=== PATIENT | male | born 1985 | race Caucasian/White ===

== ENCOUNTER 2019-09-17 05:41 | Emergency (ER) | payer SELFPAY ==
[2019-09-17] VITALS (17 sets, daily range): BP systolic 91–157; BP diastolic 42–80; PULSE 111–140; RESP 17–25; TEMP 37.7; O2SAT 95–99; BMI 54.2
--- NOTE | 2019-09-17 06:13 | ED_ITS ---
HPI - SOB/Dyspnea General: Chief Complaint: Shortness of Breath/Dyspnea Stated Complaint: SOB/FEVER Time Seen by Provider: 09/17/19 06:13 History of Present Illness: HPI Narrative: 33-year-old male presents with complaints of shortness of breath. He is tachycardic with a low-grade fever. States this began overnight he went to bed feeling well. He woke up with sweats and chills. He has had some vomiting he denies any hematochezia melena hematemesis or coffee-ground emesis. He is a little bit short of breath and is also complaining of very mild chest discomfort. He has a history of sleep apnea but does not use any CPAP. MD elicited complaint: shortness of breath and cough Onset (ago): hour(s) (Overnight) Timing: constant Severity: moderate Exacerbating factors: nothing Relieving factors: nothing Known history of: other (Sleep apnea) Associated symptoms: Reports chest congestion, chest pain and fever(s); Deny abdominal pain, nausea, orthopnea or vomiting Treatment prior to arrival: none Review of Systems Const: Reports: fever, chills and body aches; Denies: change in appetite, fatigue or malaise ENMT: Denies: throat pain, ear pain, nasal discharge or nasal congestion Card: Reports: chest pain and shortness of breath on exertion; Denies: edema or shortness of breath when lying down Resp: Reports: chest congestion GI: Denies: abdominal pain, nausea, vomiting, vomiting blood, coffee grounds in vomit, diarrhea, constipation, bloating, blood in stool or black tarry stool : Denies: flank pain, painful urination, urinary frequency or urinary urgency Skin/Breast: Denies: rash or itching PFS ED PFSH: Medical History (Updated 09/17/19 @ 08:20 by August Mcginnis DO) Sleep apnea Social History Smoking and tobacco status: former smoker Physical Exam Const: COMMON NORMALS: no apparent distress GENERAL APPEARANCE: cooperative and comfortable ORIENTATION/CONSCIOUSNESS: Yes awake, Yes oriented to person, Yes oriented to place and Yes oriented to time HENMT: COMMON NORMALS: normocephalic, head/scalp atraumatic, hearing grossly normal bilaterally, external ears normal, EAC's normal, TM's normal bilaterally, nasal mucous membranes and turbinates normal, moist oral mucous membranes and oropharynx normal HEAD & SCALP: normocephalic and atraumatic NOSE: nasal mucous membranes and turbinates normal EXTERNAL EAR: Yes external ears normal EXTERNAL AUDITORY CANAL: EAC's normal TYMPANIC MEMBRANE: TM's normal bilaterally Eye: COMMON NORMALS: PERRL, EOMs intact bilaterally, conjunctivae normal and no scleral icterus CONJUNCTIVA: Yes conjunctivae normal PUPIL: Yes PERRL Neck/C-Spine: COMMON NORMALS: full ROM, no lymphadenopathy, supple and no JVD Lymph: LYMPHATIC: no lymphadenopathy noted and no lymphedema noted Resp: COMMON NORMALS: normal respiratory effort, no retractions and no use of accessory muscles AUSCULTATION: rhonchi (mil) lower bilaterally (mild) and wheezes Cardio: COMMON NORMALS: no JVD, regular rate, regular rhythm and no murmurs RATE: regular rate RHYTHM: regular rhythm GI: COMMON NORMALS: soft to palpation and no hepatosplenomegaly AUSCULTATION: Yes normoactive bowel sounds PALPATION: Yes soft, No tender, No guarding and Yes no hepatosplenomegaly : OTHER: Patient urinated on his clothing. Extremity: COMMON NORMALS: normal to inspection, normal capillary refill, no clubbing, cyanosis or edema, no calf tenderness and no pedal edema Neuro: SENSORIUM/ORIENTATION: Yes oriented to person, Yes oriented to place and Yes oriented to time Skin: COMMON NORMALS: no rashes or lesions noted GENERAL SKIN EXAM: no rashes or lesions noted Course ED course: Patient feeling better after fluids his blood pressure did drop for whether some mechanical issues clicking data the blood pressure cuff is on the forearm and slipping off. He was up and ambulatory without any difficulty and his blood pressure was demonstrated to be in the 1 teens we will go ahead and discharge him home follow-up as needed Vital Signs: Vital signs: Vital Signs Temperature 100 F H 09/17/19 05:50 Pulse Rate 113 H 09/17/19 10:48 Respiratory Rate 18 09/17/19 10:47 Blood Pressure 102/65 09/17/19 10:48 Pulse Oximetry 97 09/17/19 10:47 MDM - SOB/Dyspnea Lab Data: Labs: Lab Results 09/17/19 09/17/19 09/17/19 Range/Units 06:07 06:26 06:34 WBC 11.7 H (4.0-10.0) 10^3/ uL RBC 5.16 (4.1-5.3) 10^6/u L Hgb 12.7 (11.7-16.6) g/dL Hct 41.4 L (42.0-52.0) % MCV 80.2 (80-94) fL MCH 24.6 L (28.0-34.0) pg MCHC 30.7 (30.0-36.0) g/dL RDW 14.2 (12.1-15.1) % Plt Count 184 (130-400) 10^3/c mm MPV 9.6 (7.4-10.4) fL Neut % (Auto) 90.7 % Lymph % (Auto) 5.0 % Chase % (Auto) 3.5 % Eos % (Auto) 0.3 % Baso % (Auto) 0.2 % Neut # (Auto) 10.6 H (1.8-7.7) 10^3/u L Lymph # (Auto) 0.6 L (0.8-4.8) 10^3/u L Chase # (Auto) 0.4 (0.2-0.9) 10^3/u L Eos # (Auto) 0.0 (0.0-0.8) 10^3/u L Baso # (Auto) 0.0 (0.0-0.1) 10^3/u L Nucleated RBC % (a uto) 0 % Nucleated RBCs # 0.0 /100WBC Specimen Type Sample Site ABG pH (7.35-7.45) ABG pCO2 (35-45) mmHg ABG pO2 (80.0-100.0) mmH g ABG HCO3 (22-26) mmol/L ABG O2 Saturation ABG Base Excess (-2.0-2.0) mmol/ L Gordon Test A-a O2 Gradient (5-10) mmHg Hematocrit (42-52) % Hgb O2 Saturation (95-100) % Carboxyhemoglobin (0.4-20.1) %THgb Methemoglobin (0.4-1.5) % Total Hemoglobin (14-18) g/dL Ionized Calcium (1.1-1.4) mmol/L O2 Delivery Device [employer] Agent [employer] ID Sodium (136-145) mmol/L Potassium (3.5-5.1) mmol/L Chloride (98-107) mmol/L Carbon Dioxide (22-29) mmol/L Anion Gap (5-19) BUN (6-20) mg/dL Creatinine (0.7-1.2) mg/dL GFR Calculation (90-130) mL/min Glucose (65-115) mg/dL Calcium (8.5-10.5) mg/dL Total Bilirubin (0.15-1.2) mg/dL AST (0-40) U/L ALT (0-41) U/L Alkaline Phosphata se (40-130) IU/L Total Protein (6.6-8.7) g/dL Albumin (3.5-5.2) g/dL Globulin (1.3-4.6) g/dL Urine Color Yellow (Yellow) Urine Appearance Clear (CLEAR) Urine pH 7 (5-7) Ur Specific Gravit y 1.005 (1.005-1.030) Urine Protein 1+ H (Negative) Urine Glucose (UA) Norm (Normal) Urine Ketones Negative (Negative) Urine Blood 3+ H (Negative) Urine Nitrate Negative (Negative) Urine Bilirubin Neg (NEGATIVE) Urine Urobilinogen Norm (Negative) mg/dL Ur Leukocyte Analy ase Negative (Negative) Urine RBC 15-25 H (0-2) /hpf Urine WBC 0-4 H (0-5) /hpf Ur Squamous Epith Cells 0-4 H (0-5) Ur Transition Epit h Cell 0-4 /hpf Urine Bacteria Trace (NONE) Influenza Type A A g Negative (Negative) POC Influenza B Ag Negative (Negative) 09/17/19 09/17/19 Range/Units 06:34 06:53 WBC (4.0-10.0) 10^3/ uL RBC (4.1-5.3) 10^6/u L Hgb (11.7-16.6) g/dL Hct (42.0-52.0) % MCV (80-94) fL MCH (28.0-34.0) pg MCHC (30.0-36.0) g/dL RDW (12.1-15.1) % Plt Count (130-400) 10^3/c mm MPV (7.4-10.4) fL Neut % (Auto) % Lymph % (Auto) % Chase % (Auto) % Eos % (Auto) % Baso % (Auto) % Neut # (Auto) (1.8-7.7) 10^3/u L Lymph # (Auto) (0.8-4.8) 10^3/u L Chase # (Auto) (0.2-0.9) 10^3/u L Eos # (Auto) (0.0-0.8) 10^3/u L Baso # (Auto) (0.0-0.1) 10^3/u L Nucleated RBC % (a uto) % Nucleated RBCs # /100WBC Specimen Type Arterial Sample Site Radial, left ABG pH 7.46 H (7.35-7.45) ABG pCO2 36.0 (35-45) mmHg ABG pO2 66.6 L (80.0-100.0) mmH g ABG HCO3 25.6 (22-26) mmol/L ABG O2 Saturation 94.6 ABG Base Excess 2.0 (-2.0-2.0) mmol/ L Gordon Test N/a A-a O2 Gradient 37.6 H (5-10) mmHg Hematocrit 41.4 L (42-52) % Hgb O2 Saturation 93.3 L (95-100) % Carboxyhemoglobin 0.9 (0.4-20.1) %THgb Methemoglobin 0.5 (0.4-1.5) % Total Hemoglobin 13.5 L (14-18) g/dL Ionized Calcium 1.2 (1.1-1.4) mmol/L O2 Delivery Device Room air [employer] Agent [employer] ID [email or web address] Sodium 138 139.0 (136-145) mmol/L Potassium 5.6 H 5.4 H (3.5-5.1) mmol/L Chloride 102 (98-107) mmol/L Carbon Dioxide 27 (22-29) mmol/L Anion Gap 14.6 (5-19) BUN 23 H (6-20) mg/dL Creatinine 1.2 (0.7-1.2) mg/dL GFR Calculation 69.7 L (90-130) mL/min Glucose 151 H 124.0 H (65-115) mg/dL Calcium 9.9 (8.5-10.5) mg/dL Total Bilirubin 0.8 (0.15-1.2) mg/dL AST 34 (0-40) U/L ALT 41 (0-41) U/L Alkaline Phosphata se 75 (40-130) IU/L Total Protein 6.7 (6.6-8.7) g/dL Albumin 3.7 (3.5-5.2) g/dL Globulin 3.0 (1.3-4.6) g/dL Urine Color (Yellow) Urine Appearance (CLEAR) Urine pH (5-7) Ur Specific Gravit y (1.005-1.030) Urine Protein (Negative) Urine Glucose (UA) (Normal) Urine Ketones (Negative) Urine Blood (Negative) Urine Nitrate (Negative) Urine Bilirubin (NEGATIVE) Urine Urobilinogen (Negative) mg/dL Ur Leukocyte Analy ase (Negative) Urine RBC (0-2) /hpf Urine WBC (0-5) /hpf Ur Squamous Epith Cells (0-5) Ur Transition Epit h Cell /hpf Urine Bacteria (NONE) Influenza Type A A g (Negative) POC Influenza B Ag (Negative) Discharge Plan Discharge Patient Disposition: Home, Self-Care Clinical Impression: Community acquired pneumonia Condition: Stable Prescriptions: New doxycycline hyclate 100 mg capsule 100 mg PO BID 10 Days Qty: 20 RF: 0 albuterol sulfate 90 mcg/actuation HFA aerosol inhaler 2 inh INHALATION Q4H PRN (Reason: shortness of breath or wheezing) Qty: 18 RF: 0 No Action Aleve 220 mg Capsule 220 mg PO Q8H PRN (Reason: Pain) RF: 0 Discharge Orders: Discharge Order (Routine); Ordered 09/17/19 Ordered By: August Mcginnis Referrals: Caro Urbina MD [Primary Care Provider] - Discharge Diet: Advance as tolerated Discharge Activity: Resume usual activity Stand Alone Forms: Work/School Release Discharge Date/Time: 09/17/19 10:55 Coding Level of Care Code ED Slot Host for Ryan Fwd Exam Comprehensive
--- NOTE | 2019-09-17 06:21 | XR_ITS ---
WS: [id number] XR chest 1V portable [id number] REASON FOR EXAM: dyspnea/cough FINDINGS: The heart and mediastinal interfaces were normal. Chronic changes in both lung pang no ac tive pneumonia, pleural effusion, pulmonary edema, or mass effect. The hilum and apices are normal. No osseous abnormalities. XR/XR chest 1V portable [id number] IMPRESSION: Chronic changes both lung pang no active processes.
[2019-09-17 06:39] LABS: Basophils % 0.2 %; Eosinophils % 0.3 %; Hematocrit 41.4 % (42.0-52.0); Hemoglobin 12.7 g/dL (11.7-16.6); Lymphocytes # 0.6 10^3/uL (0.8-4.8); Mean Corpuscular HGB Conc 30.7 g/dL (30.0-36.0); Mean Corpuscular Hemoglobin 24.6 pg (28.0-34.0); Mean Corpuscular Volume 80.2 fL (80-94); Mean Platelet Volume 9.6 fL (7.4-10.4); Monocytes # 0.4 10^3/uL (0.2-0.9); Monocytes % 3.5 %; Neutrophils # 10.6 10^3/uL (1.8-7.7); Neutrophils % 90.7 %; Nucleated Red Blood Cells % 0 %; Platelet Count 184 10^3/cmm (130-400); Red Blood Count 5.16 10^6/uL (4.1-5.3); Red Cell Distribution Width 14.2 % (12.1-15.1); White Blood Count 11.7 10^3/uL (4.0-10.0)
[2019-09-17 06:50] LABS: Influenza A by IFA Negative (Negative)
[2019-09-17 06:51] LABS: Influenza B by IFA Negative (Negative)
[2019-09-17 06:53] LABS: Urine Appearance Clear (CLEAR); Urine Color Yellow (Yellow); pH Urine 7 (5-7)
[2019-09-17 06:54] LABS: Add Urine Microscopic? YES; Bilirubin Urine Neg (NEGATIVE); Blood Urine 3+ (Negative); Glucose Urine UA Norm (Normal); Ketones Urine Negative (Negative); Leukocyte Esterase Urine Negative (Negative); Nitrate Urine Negative (Negative); Protein Urine 1+ (Negative); Specific Gravity, Urine 1.005 (1.005-1.030); Urobilinogen Urine Norm (Negative)
[2019-09-17 06:59] LABS: Alanine Aminotransferase 41 U/L (0-41); Albumin Level 3.7 g/dL (3.5-5.2); Alkaline Phosphatase 75 IU/L (40-130); Anion Gap 14.6 (5-19); Aspartate Amino Transferase 34 U/L (0-40); Blood Urea Nitrogen 23 mg/dL (6-20); Calcium 9.9 mg/dL (8.5-10.5); Carbon Dioxide 27 mmol/L (22-29); Chloride 102 mmol/L (98-107); Glomerular Filtration Rate 69.7 mL/min (90-130); Glucose 151 mg/dL (65-115); Potassium 5.6 mmol/L (3.5-5.1); Sodium 138 mmol/L (136-145); Total Bilirubin 0.8 mg/dL (0.15-1.2); Total Protein 6.7 g/dL (6.6-8.7)
[2019-09-17 07:00] LABS: Bacteria Urine TRACE; RBC Urine 15-25 /hpf (0-2); Squamous Epithelial Cell Urine 0-4 (0-5); Transitional Epi Cells Urine 0-4 /hpf; WBC Urine 0-4 /hpf (0-5)
--- NOTE | 2019-09-17 07:00 | PC.NURSE ---
Report received from Tucker Mccarty RN
[2019-09-17 07:01] LABS: Add Urine Culture? Yes
--- NOTE | 2019-09-17 07:01 | PC.NURSE ---
RT at bedside to obtain ABG
[2019-09-17 07:03] LABS: ABG PH Result 7.46 (7.35-7.45); Alveolar-Arterial Oxygen Gradi 37.6 mmHg (5-10); Arterial Blood Gas Hematocrit 41.4 % (42-52); Blood Gas Sample Site Radial, left; Blood Gas Sample Type Arterial; Carboxyhemoglobin 0.9 %THgb (0.4-20.1); HCO3 ABG 25.6 mmol/L (22-26); HGB O2 Sat 93.3 % (95-100); Ionized Calcium Level - ABG 1.2 mmol/L (1.1-1.4); Methemoglobin 0.5 % (0.4-1.5); Oxygen Device ROOM AIR; Oxygen Saturation ABG 94.6; PO2 ABG 66.6 mmHg (80.0-100.0); Potassium Level - ABG 5.4 mmol/L (3.5-5.0); Total Hemoglobin 13.5 g/dL (14-18)
--- NOTE | 2019-09-17 07:15 | CTR_ITS ---
PROCEDURE INFORMATION: Exam: CT Abdomen And Pelvis Without Contrast Exam date and time: 09/17/2019 7:27 AM Age: 33 years old Clinical indication: Abdominal pain; Patient HX: Abd pain with hematuria. History of gastric ulcer. TECHNIQUE: Imaging protocol: Computed tomography of the abdomen and pelvis without contrast. Total DLP: 1697.66 mGy-cm Radiation optimization: All CT scans at this facility use at least one of these dose optimization techniques: automated exposure control; mA and/or kV adjustment per patient size (includes targeted exams where dose is matched to clinical indication); or iterative reconstruction. COMPARISON: No relevant prior studies available. FINDINGS: Lungs: Patchy nodular ground-glass left lower lobe opacities. Liver: Hepatomegaly. Fatty liver. Gallbladder and bile ducts: No calcified stones. No ductal dilation. Pancreas: No ductal dilation. Spleen: Mild splenomegaly. Adrenals: No mass. Kidneys and ureters: No hydronephrosis. Stomach and bowel: No obstruction. No mucosal thickening. Appendix: No evidence of appendicitis. Intraperitoneal space: No free air. No significant fluid collection. Vasculature: No abdominal aortic aneurysm. Lymph nodes: No enlarged lymph nodes. Bladder: Unremarkable as visualized. Reproductive: Unremarkable as visualized. Bones/joints: Unremarkable. No acute fracture. Soft tissues: Unremarkable. CT/CT kidney stone [id number] IMPRESSION: 1. No acute intra-abdominal/pelvic abnormality. 2. Patchy nodular ground-glass opacities in the left lower lobe which may be seen with pneumonia in the appropriate clinical context. Radiation Dose CTDIVOL = (mGy): DLP = 1697.66 (mGy-cm)
--- NOTE | 2019-09-17 07:33 | PC.NURSE ---
Pt to CT
--- NOTE | 2019-09-17 07:39 | PC.NURSE ---
Pt returned from CT
[2019-09-17] MEDS: sodium chloride 0.9% 1,000 ML 999 ML IV ×2 (08:06→09:12)
--- NOTE | 2019-09-17 10:30 | PC.NURSE ---
Pt ambulated to BR with no assist.
== END 2019-09-17 10:55 | disposition home or self-care (01) ==
PROVIDERS: Emergency Provider Family Medicine; Family Provider Internal Medicine; PCP Internal Medicine
DX: J18.9 Pneumonia, unspecified organism (principal); Z87.891 Personal history of nicotine dependence
CPT/HCPCS: 12345; 36415; 36600; 71045; 74176; 80051; 80053; 81001; 82810; 83986; 85025; 87086; 87804; 96360; 96361; 99284; A9270; J7030

== ENCOUNTER 2020-04-10 09:51 | Emergency (ER) | payer SELFPAY ==
[2020-04-10] VITALS (7 sets, daily range): BP systolic 104–190; BP diastolic 70–110; PULSE 84–120; RESP 18; TEMP 36.3; O2SAT 98–100; BMI 57.4
--- NOTE | 2020-04-10 11:03 | XRR_ITS ---
PROCEDURE INFORMATION: Exam: XR Abdomen, 1 View Exam date and time: 04/10/2020 11:04 AM Age: 34 years old Clinical indication: Abdominal pain; Flank; Left; Additional info: Abd pain, constipation TECHNIQUE: Imaging protocol: XR of the abdomen. Views: Frontal supine view of the abdomen. 1 View. COMPARISON: CT kidney stone [id number] 09/17/2019 7:49 AM FINDINGS: Gastrointestinal tract: Normal as visualized. No bowel dilation. Bones/joints: Unremarkable. XR/XR KUB portable [id number] IMPRESSION: No acute findings. Exam limited because of large body habitus.
--- NOTE | 2020-04-10 11:04 | W.ED.GENADLT ---
HPI - General Adult General: Chief complaint: General Medical Stated complaint: HIGH BP Time Seen by Provider: 04/10/20 10:54 History of Present Illness: HPI narrative: Patient has 2 complaints complains about blood pressure staying high since he is been switched over to hydrochlorothiazide 7 days ago he was on lisinopril 10 mg it was cut to 5 and still blood pressures dropped and is why he was switched to hydrochlorothiazide. Patient also complains about the left lower quadrant abdominal pain radiating from the left flank denies any hematuria but does have some dysuria and also complains about constipation MD complaint: Hypertension constipation Onset (ago): day(s) Location: abdomen Radiation: flank Severity: mild Severity scale (1-10): 3 Quality: burning Pain Consistency: intermittent Associated symptoms: Reports no associated symptoms; Deny chest pain, dyspnea, headache(s), nausea, rash or vomiting Treatments prior to arrival: none Review of Systems Const: Denies: fever(s), chills or body aches Eyes: Denies: change in vision or blurry vision ENMT: Denies: throat pain or nasal congestion Card: Denies: chest pain or dyspnea on exertion Resp: Denies: dyspnea, productive cough or non-productive cough GI: Denies: abdominal pain, nausea or vomiting : Denies: difficulty urinating Musc: Denies: extremity pain Skin/Breast: Denies: rash Neuro: Denies: headache(s) Psych: Denies: anxiety or depression Lisandro/Lymph: Denies: easy bruising PFSH ED PFSH: Medical History (Updated 09/25/19 @ 00:00 by ) Sleep apnea Social History (Updated 04/10/20 @ 10:04 by Yanick Ibarra RN) Smoking and tobacco status: former smoker Alcohol intake: current Alcohol intake frequency: holidays/special occasions only Substance/Drug Use: never Physical Exam Const: COMMON NORMALS: no acute distress, average body habitus and patient oriented x3 HENMT: COMMON NORMALS: normocephalic HEAD & SCALP: normal to inspection and normocephalic FACE & SINUS: normal facial exam Eye: COMMON NORMALS: conjunctivae normal GENERAL EYE: appearance normal, both eyes and all related structures CONJUNCTIVA: Yes conjunctivae normal Neck/C-Spine: COMMON NORMALS: no JVD Chest: COMMONS NORMALS: normal inspection of the chest Resp: COMMON NORMALS: normal respiratory effort and clear to auscultation bilaterally AUSCULTATION: clear to auscultation bilaterally Cardio: COMMON NORMALS: no JVD, regular rate and regular rhythm RATE: regular rate RHYTHM: regular rhythm GI: COMMON NORMALS: Normal to inspection, nondistended, normoactive bowel sounds present Extremity: COMMON NORMALS: normal to inspection and full ROM Neuro: COMMON NORMALS: patient oriented x3 Course Vital Signs: Vital signs: Vital Signs Temperature 97.3 F L 04/10/20 10:00 Pulse Rate 84 04/10/20 10:00 Respiratory Rate 18 04/10/20 10:00 Blood Pressure 176/103 04/10/20 10:00 Pulse Oximetry 99 04/10/20 10:00 Discharge Plan Discharge Prescriptions: No Action Aleve 220 mg Capsule 220 mg PO Q8H PRN (Reason: Pain) RF: 0 albuterol sulfate 90 mcg/actuation HFA aerosol inhaler 2 inh INHALATION Q4H PRN (Reason: shortness of breath or wheezing) Qty: 18 RF: 0 Coding Level of Care Code ED Chain Maker Machine for Chg Taya
[2020-04-10] MEDS: cloNIDine 0.1 mg Tablet PO (11:07)
[2020-04-10 11:20] LABS: Basophils % 0.3 %; Eosinophils # 0.1 10^3/uL (0.0-0.8); Eosinophils % 1.4 %; Hematocrit 42.9 % (42.0-52.0); Hemoglobin 13.3 g/dL (11.7-16.6); Lymphocytes # 1.3 10^3/uL (0.8-4.8); Lymphocytes % 22.5 %; Mean Corpuscular Hemoglobin 25.9 pg (28.0-34.0); Mean Corpuscular Volume 83.6 fL (80-94); Mean Platelet Volume 10.1 fL (7.4-10.4); Monocytes # 0.3 10^3/uL (0.2-0.9); Monocytes % 5.7 %; Neutrophils # 4.02 10^3/uL (1.8-7.7); Neutrophils % 69.1 %; Nucleated Red Blood Cells % 0 %; Platelet Count 185 10^3/cmm (130-400); Red Blood Count 5.13 10^6/uL (4.1-5.3); Red Cell Distribution Width 13.3 % (12.1-15.1); White Blood Count 5.8 10^3/uL (4.0-10.0)
[2020-04-10 11:33] LABS: Alanine Aminotransferase 49 U/L (0-41); Albumin Level 4.3 g/dL (3.5-5.2); Alkaline Phosphatase 76 IU/L (40-130); Anion Gap 12.9 (5-19); Aspartate Amino Transferase 32 U/L (0-40); Blood Urea Nitrogen 16 mg/dL (6-20); Calcium 9.8 mg/dL (8.5-10.5); Carbon Dioxide 26 mmol/L (22-29); Chloride 103 mmol/L (98-107); Globulin 2.7 g/dL (1.3-4.6); Glomerular Filtration Rate 96.6 mL/min (90-130); Glucose 108 mg/dL (65-115); Osmolality Calculated 286 mOsm/kg (285-295); Potassium 4.9 mmol/L (3.5-5.1); Sodium 137 mmol/L (136-145); Total Bilirubin 0.6 mg/dL (0.15-1.2)
[2020-04-10 12:09] LABS: Add Urine Microscopic? YES; Bilirubin Urine Neg (Negative); Blood Urine 3+ (Negative); Glucose Urine UA Norm (Normal); Ketones Urine Negative (Negative); Leukocyte Esterase Urine Negative (Negative); Nitrate Urine Negative (Negative); Protein Urine 3+ (Negative); Urine Appearance Clear (CLEAR); Urine Color Yellow (Yellow); Urobilinogen Urine Norm (Negative); pH Urine 6 (5-7)
[2020-04-10 12:10] LABS: Add Urine Culture? Yes; Bacteria Urine TRACE /hpf; WBC Urine RARE /hpf (0-5)
--- NOTE | 2020-04-10 12:26 | CTR_ITS ---
PROCEDURE INFORMATION: Exam: CT Abdomen And Pelvis Without Contrast Exam date and time: 04/10/2020 12:55 PM Age: 34 years old Clinical indication: Abdominal pain; Left; Patient HX: C/O L flank pain and hematuria; Additional info: Left flank pain TECHNIQUE: Imaging protocol: Computed tomography of the abdomen and pelvis without contrast. Radiation optimization: All CT scans at this facility use at least one of these dose optimization techniques: automated exposure control; mA and/or kV adjustment per patient size (includes targeted exams where dose is matched to clinical indication); or iterative reconstruction. COMPARISON: CT kidney stone [id number] 09/17/2019 7:49 AM RADIATION DOSE METRICS: Total DLP (mGy-cm): 2260.48 FINDINGS: Liver: Fatty liver. Gallbladder and bile ducts: Normal. No calcified stones. No ductal dilation. Pancreas: Normal. No ductal dilation. Spleen: Normal. No splenomegaly. Adrenals: Normal. No mass. Kidneys and ureters: 1.3 cm rounded low-density structure in anterior aspect of left kidney, unchanged. Not well characterized on this nonenhanced study but probable renal cyst. Renal ultrasound could further evaluate as clinically indicated. No kidney or ureteral stone. No hydronephrosis. Stomach and bowel: Two or 3 small sigmoid colon diverticula. No evidence for acute diverticulitis. Appendix: Normal small appendix. Intraperitoneal space: Unremarkable. No free air. No significant fluid collection. Vasculature: Unremarkable. No abdominal aortic aneurysm. Lymph nodes: Unremarkable. No enlarged lymph nodes. Urinary bladder: Unremarkable as visualized. Reproductive: Unremarkable as visualized. 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 Soft tissues: Unremarkable. CT/CT kidney stone [id number] IMPRESSION: 1.) No acute process evident. 2.) Chronic findings as described above. Radiation Dose CTDIVOL = (mGy): DLP = 2260.48 (mGy-cm)
[2020-04-10] MEDS: meperidine 50 mg/mL INJ 25 MG IVP (13:13)
[2020-04-10] MEDS: ondansetron 2 mg/ML SDV 2 mL 4 MG IVP (13:13)
[2020-04-10] MEDS: sodium chloride 0.9% 500 ML IV (13:13)
== END 2020-04-10 15:06 | disposition home or self-care (01) ==
PROVIDERS: Emergency Provider Nurse Practitioner Family; PCP Internal Medicine
DX: I10 Essential (primary) hypertension (principal); Z87.891 Personal history of nicotine dependence
CPT/HCPCS: 12345; 36415; 74018; 74176; 80053; 81001; 85025; 87086; 96361; 96374; 96375; 99283; J2175; J2405; J7040

== ENCOUNTER → 2020-07-22 11:31 | Outpatient (BNVA) | payer OTHER, SELFPAY | PROVIDERS: PCP Internal Medicine; Visit Provider Nurse Practitioner Family | DX: R10.12 Left upper quadrant pain (principal); R53.83 Other fatigue; E61.1 Iron deficiency; Z79.899 Other long term (current) drug therapy | CPT/HCPCS: 80053; 83036; 83540; 84439; 84443; 84481; 85025 ==

== ENCOUNTER 2020-07-28 14:18 | Outpatient (CLI) | payer OTHER, SELFPAY ==
--- NOTE | 2020-07-28 14:25 | XR_ITS ---
WS: [id number] Lateral views of cervical spine in the flexion, extension and neutral positions. 07/28/2020 Clinical Data: M50.30 - Other cervical disc degeneration, unspecified cervical region Comparison: None. Findings: On flexion and extension there is no limitation of motion or subluxation. There is a small calcificat ion of the anterior longitudinal ligament at C2-C3. Minimal osteoarthritic spurring is seen at all th e cervical vertebral bodies. There is no prevertebral soft tissue swelling. XR/XR cervical spine fl/ex [id number] Impression: 1. Minimal osteoarthritis of the anterior cervical vertebral bodies. 2. Negative for limitation of motion or subluxation on flexion or extension.
--- NOTE | 2020-07-28 14:25 | XR_ITS ---
WS: [id number] Thoracic spine, 3 views, 07/28/2020 Clinical Data: M51.34 - Other intervertebral disc degeneration, thoracic region Comparison: None. Findings: No compression fractures are seen. The disc heights are normal. The paravertebral regions are normal. There is minimal anterior osteoarthritic spurring of the T8-T12 vertebral bodies. XR/XR thoracic spine 3V* [id number] Impression: Minimal osteoarthritis T8-T12.
== END 2020-07-28 14:19 | disposition home or self-care (01) ==
PROVIDERS: PCP Internal Medicine; Visit Provider Nurse Practitioner Family
DX: M50.30 Other cervical disc degeneration, unspecified cervical region (principal); M51.34 Other intervertebral disc degeneration, thoracic region
CPT/HCPCS: 72040; 72072

== ENCOUNTER 2020-08-05 14:01 | Outpatient (CLI) | payer OTHER, SELFPAY ==
--- NOTE | 2020-08-05 14:15 | US_ITS ---
WS: [id number] RENAL ULTRASOUND HISTORY: N28.1 - Cyst of kidney, acquired COMPARISON: 04/10/2020 TECHNIQUE: 2-D and color Doppler imaging of the kidney submitted. Right kidney: 10.8 cm x 4.7 cm x 5.5 cm. Normal echogenicity with no hydronephrosis or mass. Left kidney: 14.1 cm x 6.3 cm x 6.8 cm. Normal echogenicity with no hydronephrosis or mass.. Slight decreased echogenicity in the mid kidney. Cannot characterize further. Aorta: Normal. Urinary Bladder: Normal distention. US/US renal BI* [id number] IMPRESSION: 1. Quality of this examination is significantly limited by body habitus. 2. Indeterminate for LEFT renal cyst. Cannot confirm on this ultrasound evalua tion.
== END 2020-08-05 14:02 | disposition home or self-care (01) ==
LOC: US 14:06
PROVIDERS: PCP Nurse Practitioner Family; Visit Provider Nurse Practitioner Family
DX: N28.1 Cyst of kidney, acquired (principal)
CPT/HCPCS: 76770

== ENCOUNTER 2020-08-08 06:00 | Outpatient (CLI) | payer OTHER, SELFPAY | END 2020-08-08 06:01 | disposition home or self-care (01) | LOC: RADSHAW 03-01 14:15 | PROVIDERS: PCP Nurse Practitioner Family; Visit Provider Nurse Practitioner Family | DX: R31.9 Hematuria, unspecified (principal) | CPT/HCPCS: 81003; 87086 ==

== ENCOUNTER 2020-08-11 06:00 | Outpatient (RCR) | payer OTHER, SELFPAY | END 2020-08-14 23:59 | disposition home or self-care (01) | LOC: WPT 06:00 | PROVIDERS: PCP Nurse Practitioner Family; Referring Provider Nurse Practitioner Family; Visit Provider Nurse Practitioner Family | DX: M51.34 Other intervertebral disc degeneration, thoracic region (principal); M50.30 Other cervical disc degeneration, unspecified cervical region | CPT/HCPCS: 97110; 97161 ==

== ENCOUNTER 2020-08-15 06:00 | Outpatient (RCR) | payer OTHER, SELFPAY | END 2020-09-11 23:59 | disposition home or self-care (01) | LOC: WPT 06:00 | PROVIDERS: PCP Nurse Practitioner Family; Referring Provider Nurse Practitioner Family; Visit Provider Nurse Practitioner Family | DX: R31.21 Asymptomatic microscopic hematuria (principal); R80.9 Proteinuria, unspecified; R31.9 Hematuria, unspecified; R07.89 Other chest pain | CPT/HCPCS: 81003; 85651; 86140; 86431; 87086 ==

== ENCOUNTER → 2020-08-26 11:39 | Outpatient (BNVA) | payer OTHER, SELFPAY | PROVIDERS: PCP Nurse Practitioner Family; Visit Provider Nurse Practitioner Family | DX: R31.21 Asymptomatic microscopic hematuria (principal); R80.9 Proteinuria, unspecified | CPT/HCPCS: 81003 ==

== ENCOUNTER 2020-09-19 14:08 | Outpatient (CLI) | payer OTHER, SELFPAY ==
--- NOTE | 2020-09-19 14:14 | XRR_ITS ---
PROCEDURE INFORMATION: Exam: XR Ribs Exam date and time: 09/19/2020 2:32 PM Age: 34 years old Clinical indication: Chest wall pain. Left upper rib pain over heart. No injury. TECHNIQUE: Imaging protocol: XR of the ribs. Views: 3 views. Bilateral ribs. COMPARISON: No relevant prior studies available. FINDINGS: No acute rib fracture is identified. XR/XR ribs BI 3V* [id number] IMPRESSION: No acute rib fracture is identified. Consider CT if there is continued clinical concern.
== END 2020-09-19 14:09 | disposition home or self-care (01) ==
PROVIDERS: PCP Nurse Practitioner Family; Visit Provider Nurse Practitioner Family
DX: R07.89 Other chest pain (principal)
CPT/HCPCS: 71110

== ENCOUNTER → 2020-09-21 11:47 | Outpatient (BNVA) | payer OTHER, SELFPAY | PROVIDERS: PCP Nurse Practitioner Family; Visit Provider Nurse Practitioner Family | DX: R31.9 Hematuria, unspecified (principal); K57.92 Diverticulitis of intestine, part unspecified, without perforation or abscess without bleeding | CPT/HCPCS: 81003; 87086 ==

== ENCOUNTER → 2020-10-06 10:13 | Outpatient (BNVA) | payer OTHER, SELFPAY | PROVIDERS: PCP Nurse Practitioner Family; Visit Provider Internal Medicine | DX: Z01.812 Encounter for preprocedural laboratory examination (principal); K92.1 Melena; E61.1 Iron deficiency; R12 Heartburn; Z20.822 Contact with and (suspected) exposure to COVID-19 | CPT/HCPCS: 87635 ==

== ENCOUNTER 2020-10-10 08:44 | Day surgery (SDC) | payer OTHER, SELFPAY ==
[2020-10-07 10:06] VITALS: BMI 57.3
--- NOTE | 2020-10-10 09:00 | ANES.PREANE2 ---
Pre-Anesthetic Assessment Pre-Anesthetic Assessment: Height/Weight: Height 1.83 m Weight 191.87 kg Preop Diagnosis: GERD Proposed Procedure: Operation Date: 10/10/20 10:00 Proposed Procedures p EGD [id number] K92.1(Not Applicable) - Avila Diaz MD s Colonoscopy(Not Applicable) - Avila Diaz MD Familial anesthetic complications: Brother requires a lot of anesthesia Was Beta David taken within 24 hours: Yes Was Clonidine taken within 24 hours: N/A Social: Social History: No alcohol and No tobacco Exam: Pre-Anes Outpt Exam: alert, oriented x 3, clear to auscultation bilaterally and regular rate & rhythm Airway: Cervical ROM: WNL MP: 2 Dentition: Chipped (front) Additional comments: Large neck circumference Pulmonary: Pulmonary: Asthma and Sleep apnea (doesn't wear his cpap) CV/HEM: CV/HEM: HTN Hepatic: Hepatic: None reported (fatty liver) Metabolic: Metabolic: Morbid obesity Musc/skel: Musc/skel: Lower Back Pain Anesthetic Plan: ASA status: 3 Anesthesia: MAC Risk of > 500 ml blood loss (7ml/kg in children): No PFSH Anesthesia PFSH: Medical History Cervical arthritis Chest wall pain DDD (degenerative disc disease), cervical DDD (degenerative disc disease), thoracic Diverticulitis Fatigue Hematuria Hematuria Iron deficiency Medication management Osteophyte of cervical spine Proteinuria Renal cyst, left Sleep apnea Social History (Updated 10/06/20 @ 09:38 by Chey Fierro, CT) Smoking and tobacco status: former smoker Alcohol intake: current Alcohol intake frequency: holidays/special occasions only History of recent travel: No Data Anesthesia Cardiac Studies: No Data to Display
--- NOTE | 2020-10-10 09:15 | W.PM.OPSUD ---
Surgery/Procedure H&P Update DATE OF PROCEDURE: October 10, 2020 DATE H&P PERFORMED: 10/06/20 PREOP DIAGNOSIS: GERD PLANNED PROCEDURE: Operation Date: 10/10/20 10:00 Proposed Procedures p EGD [id number] K92.1(Not Applicable) - Avila Diaz MD s Colonoscopy(Not Applicable) - Avila Diaz MD
[2020-10-10 09:30] VITALS: BP 164/94; PULSE 96; RESP 18; TEMP 36.9; O2SAT 97
[2020-10-10] MEDS: lactated ringers 1,000 ML 30 ML IV (10:08)
[2020-10-10 10:52] VITALS: BP 130/75; PULSE 78; RESP 20; TEMP 32.2; O2SAT 97
[2020-10-10 11:07] VITALS: BP 133/97; PULSE 74; RESP 18; TEMP 36.3; O2SAT 97
[2020-10-11 14:15] LABS: H. Pylori / CLO Test Positive
== END 2020-10-10 11:35 | disposition home or self-care (01) ==
PROVIDERS: PCP Nurse Practitioner Family; Visit Provider Internal Medicine
PROC: 0DJ08ZZ Inspection of Upper Intestinal Tract, Via Natural or Artificial Opening Endoscopic (ICD-10-PCS; CPT 43235; principal; 2020-10-10 10:00)
PROC: 0DJD8ZZ Inspection of Lower Intestinal Tract, Via Natural or Artificial Opening Endoscopic (ICD-10-PCS; CPT 45378; 2020-10-10 10:00)
DX: K21.9 Gastro-esophageal reflux disease without esophagitis (principal); K29.70 Gastritis, unspecified, without bleeding; D12.3 Benign neoplasm of transverse colon; J45.909 Unspecified asthma, uncomplicated; G47.30 Sleep apnea, unspecified; I10 Essential (primary) hypertension; E66.01 Morbid (severe) obesity due to excess calories; Z68.43 Body mass index [BMI] 50.0-59.9, adult; Z87.891 Personal history of nicotine dependence
CPT/HCPCS: 43239; 45385; 87077; 88305; J2704

== ENCOUNTER → 2020-11-14 11:07 | Outpatient (BNVA) | payer OTHER, SELFPAY | PROVIDERS: PCP Nurse Practitioner Family; Visit Provider Nurse Practitioner Family | DX: R31.9 Hematuria, unspecified (principal); I10 Essential (primary) hypertension; R25.2 Cramp and spasm; E61.1 Iron deficiency; E55.9 Vitamin D deficiency, unspecified; Z13.6 Encounter for screening for cardiovascular disorders; G47.30 Sleep apnea, unspecified; R53.83 Other fatigue; Z79.899 Other long term (current) drug therapy | CPT/HCPCS: 80053; 80061; 81003; 82306; 82607; 83036; 83550; 83735; 84439; 84443; 85025; 87086 ==

== ENCOUNTER → 2020-11-21 11:55 | Outpatient (BNVA) | payer OTHER, SELFPAY | PROVIDERS: PCP Nurse Practitioner Family; Visit Provider Nurse Practitioner Family | DX: R31.9 Hematuria, unspecified (principal); R80.9 Proteinuria, unspecified; E10.65 Type 1 diabetes mellitus with hyperglycemia | CPT/HCPCS: 82043 ==

== ENCOUNTER → 2020-11-23 11:58 | Outpatient (BNVA) | payer OTHER, SELFPAY | PROVIDERS: PCP Nurse Practitioner Family; Visit Provider Nurse Practitioner Family | DX: R31.9 Hematuria, unspecified (principal) | CPT/HCPCS: 82043 ==

== ENCOUNTER 2021-01-03 07:55 | Outpatient (CLI) | payer OTHER, SELFPAY ==
--- NOTE | 2021-01-03 08:16 | US_ITS ---
WS: [id number] RENAL ULTRASOUND HISTORY: HEMATURIA/CHRONIC KIDNEY DZ STAGE 2 COMPARISON: 08/05/2020 TECHNIQUE: 2-D and color Doppler imaging of the kidney submitted. Right kidney: 10.9 cm x 4.9 cm x 4.9 cm. Normal echogenicity with no hydronephrosis or mass. Left kidney: 12.9 cm x 6.2 cm x 6.2 cm. Normal size kidney. No hydronephrosis. Cortical cyst in the mid kidney measures 1.9 x 1.8 x 1.9 cm. N o solid mass or cortical thinning. Aorta: Limited visualization. No abnormality. Urinary Bladder: Normal distention. US/US renal BI* [id number] IMPRESSION: 1. Technically difficult evaluation due to body habitus. 2. No hydronephrosis. 3. Simple cyst LEFT kidney. Similar to the prior study from 08/05/2020.
[2021-01-03 09:52] LABS: Complement C3 187 mg/dL (90-180)
[2021-01-05 20:48] LABS: Anti-Nuclear Antibody Screen NEGATIVE (NEGATIVE)
== END 2021-01-03 07:56 | disposition home or self-care (01) ==
LOC: RAD 08:02
PROVIDERS: PCP Nurse Practitioner Family; Visit Provider Internal Medicine Nephrology
DX: R31.9 Hematuria, unspecified (principal); N18.2 Chronic kidney disease, stage 2 (mild); Q61.01 Congenital single renal cyst
CPT/HCPCS: 36415; 76770; 86038; 86160

== ENCOUNTER → 2021-02-15 08:41 | Outpatient (BNVA) | payer OTHER, SELFPAY | PROVIDERS: PCP Nurse Practitioner Family; Visit Provider Nurse Practitioner Family | DX: E10.65 Type 1 diabetes mellitus with hyperglycemia (principal); E55.9 Vitamin D deficiency, unspecified; I10 Essential (primary) hypertension; Z13.6 Encounter for screening for cardiovascular disorders; R80.9 Proteinuria, unspecified | CPT/HCPCS: 80053; 80061; 81003; 82306; 83036; 84443; 85025 ==

== ENCOUNTER 2021-03-23 12:19 | Outpatient (CLI) | payer OTHER, SELFPAY | END 2021-03-23 12:20 | disposition home or self-care (01) | LOC: SLEEP 12:20 | PROVIDERS: PCP Nurse Practitioner Family; Visit Provider Nurse Practitioner Family | DX: G47.30 Sleep apnea, unspecified (principal) | CPT/HCPCS: G0399 ==

== ENCOUNTER 2021-04-26 11:39 | Outpatient (CLI) | payer OTHER, SELFPAY ==
--- NOTE | 2021-04-26 11:46 | XR_ITS ---
WS: [id number] ABDOMEN KUB CLINICAL INFORMATION: Renal/ureteral calculi. COMPARISON: None. FINDINGS: Exam somewhat limited due to body habitus. No visualized calculi overlying the renal fossa or pelvis. No visualized renal parenchymal or pelvic calculi. Normal visualized bowel gas pattern. XR/XR KUB [id number] Impression: No visualized renal parenchymal or pelvic calculi.
== END 2021-04-26 11:40 | disposition home or self-care (01) ==
PROVIDERS: PCP Nurse Practitioner Family; Visit Provider Nurse Practitioner Family
DX: R31.9 Hematuria, unspecified (principal); N20.0 Calculus of kidney
CPT/HCPCS: 74018

== ENCOUNTER 2021-05-01 01:57 | Emergency (ER) | payer OTHER, SELFPAY ==
[2021-05-01 02:01] VITALS: BP 178/120; PULSE 93; RESP 18; TEMP 36.6; O2SAT 99; BMI 57.3
--- NOTE | 2021-05-01 02:16 | XRR_ITS ---
PROCEDURE INFORMATION: Exam: XR Thoracic Spine Exam date and time: 05/01/2021 2:16 AM Age: 35 years old Clinical indication: Pain in thoracic spine TECHNIQUE: Imaging protocol: XR of the thoracic spine. Views: 3 views. COMPARISON: CR XR thoracic spine 3V* [id number] 07/28/2020 2:34 PM FINDINGS: Bones/joints: Normal. No acute fracture. Normal alignment. Soft tissues: Unremarkable. XR/XR thoracic spine 3V* [id number] IMPRESSION: No acute findings. Radiation Dose CTDIVOL = (mGy): DLP = (mGy-cm)
--- NOTE | 2021-05-01 02:17 | ED_ITS ---
HPI - Back Pain/Injury General: Chief Complaint: Back Pain/Injury Stated Complaint: Upper Back Pain Time Seen by Provider: 05/01/21 01:59 Source: patient Mode of arrival: ambulatory Limitations: no limitations History of Present Illness: HPI Narrative: 35-year-old male states she been having left upper back pain states been on for 2 to 3 days. States pain is much worse with movement or palpation. He states pains improved with rest. Denies any chest pain or shortness of breath. Denies any cough or fever. Denies any no known injuries. Denies any dysuria. He does have a history of high blood pressure and states his blood pressure elevated due to pain. States pain is currently 9 out of 10. Associated symptoms: Deny abdominal pain, chills, dysuria, fever(s), nausea or vomiting Review of Systems Const: Denies: fever(s), chills, body aches or change in appetite Eyes: Denies: blurry vision or eye discomfort ENMT: Denies: throat pain or dental pain Card: Denies: chest pain Resp: Denies: dyspnea GI: Denies: abdominal pain, nausea, vomiting or diarrhea : Denies: dysuria Musc: Reports: back pain Skin/Breast: Denies: rash Neuro: Denies: headache(s) Psych: Denies: depression Lisandro/Lymph: Denies: easy bruising All/Imm: Denies: urticaria PFSH ED PFSH: Medical History (Updated 05/01/21 @ 02:55 by Srikanth Mixon MD) Cervical arthritis Chest wall pain DDD (degenerative disc disease), cervical DDD (degenerative disc disease), thoracic Diverticulitis Essential hypertension Fatigue Hematuria Hematuria Hematuria History of colon polyps Hypertension screen Iron deficiency Medication management Microalbuminuria Muscle cramps New onset type 1 diabetes mellitus, uncontrolled Osteophyte of cervical spine Proteinuria Renal cyst, left Renal stone Sleep apnea Vitamin D deficiency Social History Alcohol intake: current Alcohol intake frequency: holidays/special occasions only History of recent travel: No Physical Exam Const: COMMON NORMALS: no acute distress, patient oriented x3 and healthy appearing HENMT: COMMON NORMALS: normocephalic and atraumatic HEAD & SCALP: normoce phalic and atraumatic Eye: COMMON NORMALS: Equal, round and reactive pupils present and EOMs intact bilaterally PUPIL: Yes Equal, round and reactive pupils present Neck/C-Spine: COMMON NORMALS: full ROM and supple Chest: COMMONS NORMALS: normal inspection of the chest and normal palpation of entire chest wall Resp: COMMON NORMALS: normal respiratory effort, No retractions, No use of accessory muscles and clear to auscultation bilaterally AUSCULTATION: clear to auscultation bilaterally Cardio: COMMON NORMALS: regular rate, regular rhythm and No murmurs present (Cardio) RATE: regular rate RHYTHM: regular rhythm GI: COMMON NORMALS: Normal to inspection, nondistended, normoactive bowel sounds present, Soft to palpation, non-tender and no masses PALPATION: Yes Soft to palpation Back/Pelvis: OTHER: Point tender over left upper back over the rhomboid muscle reproduces pain Extremity: COMMON NORMALS: normal to inspection and full ROM Neuro: COMMON NORMALS: patient oriented x3, moves all extremities and no focal motor deficits Psych: COMMON NORMALS: mental status grossly normal, Normal thought process present and cooperative THOUGHT PROCESS: Normal thought process present Skin: COMMON NORMALS: no rashes or lesions noted and no wounds GENERAL SKIN EXAM: no rashes or lesions noted Course Vital Signs: Vital signs: Vital Signs Temperature 97.8 F 05/01/21 02:01 Pulse Rate 80 05/01/21 03:05 Respiratory Rate 18 05/01/21 03:05 Blood Pressure 147/80 05/01/21 03:05 Pulse Oximetry 92 05/01/21 03:05 MDM - Back Pain/Injury MDM Narrative: Medical decision making narrative: Patient presents here with back pain is likely muscular in nature as he is point tender over the rhomboid region of his left back. X-ray here is negative. He has no flank or abdominal tenderness. Patient has no midline tenderness or pain. He stable for discharge is to follow-up with PCP in 2 to 4 days return if worsening. Imaging Data^: CXR: Attestation: I personally reviewed and interpreted this imaging study as follows: My impression: No acute normality EKG Data^: EKG 1: Attestation: I personally reviewed and interpreted this EKG as follows: EKG interpretation date: 05/01/21 EKG interpretation time: 02:11 Interpretation: sinus tach hr [address] or t wave abnormalities qrs 105 qtc 366 Discharge Plan Discharge Patient Disposition: Home Clinical Impression: Thoracic back pain Qualifiers: Chronicity: acute Back pain laterality: left Qualified Code(s): M54.6 - Pain in thoracic spine Condition: Stable Prescriptions: New hydrocodone-acetaminophen 5-325 mg tablet 1 tab PO Q6H PRN (Reason: pain) Qty: 14 RF: 0 methocarbamol 750 mg tablet 750 mg PO Q6H PRN (Reason: spasms) Qty: 20 RF: 0 Naprosyn 500 mg tablet 500 mg PO BID PRN (Reason: pain) Qty: 20 RF: 0 No Action omega-3 fatty acids 1,000 mg capsule 1,000 mg PO DAILY RF: 0 cyanocobalamin (vitamin B-12) 1,000 mcg capsule 1,000 mcg PO DAILY RF: 0 multivitamin Tablet 1 tab PO DAILY RF: 0 chlorthalidone 25 mg tablet PO RF: 0 (DME) CPAP See Rx Instructions .Route .MEDSUPPLY Qty: 1 RF: 0 Ozempic 0.25 mg or 0.5 mg(2 mg/1.5 mL) pen injector 0.25 mg SUBCUT .weekly 30 Days Qty: 1.5 RF: 0 sulfamethoxazole-trimethoprim [Bactrim DS] 800-160 mg tablet 1 tab PO BID 10 Days Qty: 20 RF: 0 lisinopril 2.5 mg tablet See Rx Instructions .ROUTE .COMPLEX Qty: 30 RF: 5 cholecalciferol (vitamin D3) 1,250 mcg (50,000 unit) capsule 1,250 mcg PO DIRECTED Qty: 4 RF: 1 metformin 1,000 mg tablet See Rx Instructions .ROUTE .COMPLEX Qty: 30 RF: 0 metoprolol succinate 25 mg tablet extended release 24 hr See Rx Instructions .ROUTE .COMPLEX Qty: 15 RF: 0 pantoprazole 40 mg tablet,delayed release (DR/EC) 40 mg PO DAILY Qty: 90 RF: 8 Discharge Orders: Discharge ED (Routine); Ordered 05/01/21 Ordered By: Srikanth Mixon Discharge Diet: Advance as tolerated Discharge Activity: Resume usual activity Patient Instructions: Back Pain (ED), Opioid Safety Coding Level of Care Code ED Collar Padder Blindstitch for Ryan Fwd Exam Comprehensive
--- NOTE | 2021-05-01 02:19 | XRR_ITS ---
PROCEDURE INFORMATION: Exam: XR Chest Exam date and time: 05/01/2021 2:19 AM Age: 35 years old Clinical indication: Pain; Left-sided TECHNIQUE: Imaging protocol: XR of the chest. Views: 1 view. COMPARISON: CR XR chest 1V portable [id number] 09/17/2019 6:29 AM FINDINGS: Lungs: Unremarkable. No consolidation. Pleural spaces: Unremarkable. No pleural effusion. No pneumothorax. Heart/Mediastinum: Unremarkable. No cardiomegaly. Bones/joints: Unremarkable. XR/XR chest 1V portable [id number] IMPRESSION: No acute disease. Radiation Dose CTDIVOL = (mGy): DLP = (mGy-cm)
--- NOTE | 2021-05-01 02:35 | PC.NURSE ---
Pain to lower back, Onset Saturday. No injury reported. Pt states chronic back pain.
[2021-05-01] MEDS: HYDROcodone-acetaminophen 7.5-325 mg Tablet 1 TAB PO (02:37)
[2021-05-01] MEDS: diazePAM 5 mg Tablet PO (02:37)
[2021-05-01 03:05] VITALS: BP 147/80; PULSE 80; RESP 18; O2SAT 92
== END 2021-05-01 03:07 | disposition home or self-care (01) ==
PROVIDERS: Emergency Provider Emergency Medicine
DX: M54.6 Pain in thoracic spine (principal); Z79.84 Long term (current) use of oral hypoglycemic drugs; I10 Essential (primary) hypertension; E10.9 Type 1 diabetes mellitus without complications
CPT/HCPCS: 71045; 72072; 99283

== ENCOUNTER → 2021-06-01 10:53 | Outpatient (BNVA) | payer OTHER, SELFPAY | PROVIDERS: PCP Nurse Practitioner Family; Visit Provider Nurse Practitioner Family | DX: M79.89 Other specified soft tissue disorders (principal); R80.9 Proteinuria, unspecified; E61.1 Iron deficiency; I10 Essential (primary) hypertension; Z79.899 Other long term (current) drug therapy; Z13.6 Encounter for screening for cardiovascular disorders; E55.9 Vitamin D deficiency, unspecified | CPT/HCPCS: 73140 ==

== ENCOUNTER → 2021-06-06 09:48 | Outpatient (BNVA) | payer OTHER, SELFPAY | PROVIDERS: PCP Nurse Practitioner Family; Visit Provider Nurse Practitioner Family | DX: R80.9 Proteinuria, unspecified (principal); I10 Essential (primary) hypertension; E61.1 Iron deficiency; Z79.899 Other long term (current) drug therapy; E55.9 Vitamin D deficiency, unspecified; Z13.6 Encounter for screening for cardiovascular disorders; R31.9 Hematuria, unspecified; E10.65 Type 1 diabetes mellitus with hyperglycemia; R53.83 Other fatigue | CPT/HCPCS: 80053; 80061; 81003; 82043; 82306; 82728; 83036; 83550; 84443; 85025 ==

== ENCOUNTER 2021-09-15 06:29 | Emergency (ER) | payer MEDICAID, SELFPAY ==
[2021-09-15 06:33] VITALS: BP 148/92; PULSE 124; RESP 18; TEMP 36.6; O2SAT 96; BMI 57.6
--- NOTE | 2021-09-15 06:35 | ED_ITS ---
HPI - Extremity Problem General: Chief complaint: Extremity Problem,Nontraumatic Stated complaint: Left foot hurting and a little swollen Time Seen by Provider: 09/15/21 06:32 Source: patient Mode of arrival: ambulatory Limitations: no limitations History of Present Illness: 35-year-old male presents emergency room complaining of left ankle pain localizes the pain to the distal portion of the lateral malleolus. Patient states he felt like he twisted it about 4 days ago. He has been able to bear weight is just been aching and is moderate swelling. No other injuries no recent illnesses. MD Complaint: extremity swelling Location: left Quality: aching Radiation: none Relieving factors: nothing Exacerbating factors: nothing Associated symptoms: Deny arthralgias, chest pain, fever(s), myalgias, rash or short of breath Review of Systems Const: Denies: fever(s) ENMT: Denies: throat pain, ear or mastoid pain, nasal discharge or nasal congestion Card: Denies: chest pain Resp: Denies: dyspnea, productive cough or non-productive cough GI: Denies: abdominal pain, nausea, vomiting, diarrhea or constipation : Denies: flank pain, dysuria, urinary frequency or urinary urgency Skin/Breast: Denies: rash PFSH ED PFSH: Medical History Cervical arthritis Chest wall pain DDD (degenerative disc disease), cervical DDD (degenerative disc disease), thoracic Diverticulitis Essential hypertension Fatigue Hematuria Hematuria Hematuria History of colon polyps Hypertension screen Iron deficiency Left foot pain Medication management Microalbuminuria Morbid obesity with BMI of 45.0-49.9, adult Muscle cramps New onset type 1 diabetes mellitus, uncontrolled Osteophyte of cervical spine Proteinuria Renal cyst, left Renal stone Sleep apnea Swelling of finger, left Vitamin D deficiency Social History Smoking and tobacco status: never smoked Alcohol intake: current Alcohol intake frequency: holidays/special occasions only History of recent travel: No Physical Exam Const: COMMON NORMALS: no acute distress GENERAL APPEARANCE: cooperative and comfortable ORIENTATION/CONSCIOUSNESS: Yes awake, Yes oriented to person, Yes oriented to place and Yes oriented to time HENMT: COMMON NORMALS: normocephalic, atraumatic and hearing grossly normal bilaterally HEAD & SCALP: normocephalic and atraumatic Neck/C-Spine: COMMON NORMALS: no JVD Resp: COMMON NORMALS: normal respiratory effort, No retractions, No use of accessory muscles and clear to auscultation bilaterally AUSCULTATION: clear to auscultation bilaterally Cardio: COMMON NORMALS: no JVD, regular rate, regular rhythm and No murmurs present (Cardio) RATE: regular rate RHYTHM: regular rhythm Extremity: OTHER: Mild localized swelling to the lateral portion of the ankle. Discomfort with inversion but has firm endpoint on inversion. Ankle Melquiades joint is grossly stable to manipulation and stress. No obvious deformity. Neurovascularly intact Neuro: SENSORIUM/ORIENTATION: Yes oriented to person, Yes oriented to place and Yes oriented to time Skin: COMMON NORMALS: no rashes or lesions noted GENERAL SKIN EXAM: no rashes or lesions noted Course Vital Signs: Vital signs: Vital Signs Temperature 97.9 F 09/15/21 06:33 Pulse Rate 68 09/15/21 06:42 Respiratory Rate 18 09/15/21 06:33 Blood Pressure 148/92 09/15/21 06:33 Pulse Oximetry 96 09/15/21 06:33 MDM - Extremity (Nontraumatic) Medical Decision Making X-ray is normal supportive care as needed anti-inflammatories rest ice elevate follow-up with primary care if persists for evaluation for possible referral or advanced imaging. Weightbearing as tolerated. Can wrap or use ankle brace as needed for comfort. Medical Records I reviewed the patient's medical records. Lab Data I reviewed the patient's lab results. Discharge Plan Discharge Patient Disposition: Home Clinical Impression: Left ankle sprain Condition: Stable Prescriptions: New diclofenac sodium 75 mg tablet,delayed release (DR/EC) 75 mg PO Q12H PRN (Reason: pain) Qty: 20 0RF No Action omega-3 fatty acids 1,000 mg capsule 1,000 mg PO DAILY 0RF multivitamin Tablet 1 tab PO DAILY 0RF chlorthalidone 25 mg tablet PO 0RF (DME) CPAP See Rx Instructions .Route .MEDSUPPLY Qty: 1 0RF Rx Instructions: As directed Ozempic 0.25 mg or 0.5 mg(2 mg/1.5 mL) pen injector 0.5 mg SUBCUT .weekly 30 Days Qty: 1.5 0RF cholecalciferol (vitamin D3) 1,250 mcg (50,000 unit) capsule 1,250 mcg PO DIRECTED Qty: 4 1RF Rx Instructions: Weekly on Saturday lisinopril 2.5 mg tablet See Rx Instructions .ROUTE .COMPLEX Qty: 30 5RF Dose Instruction: Take 1 tablet by mouth once daily Rx Instructions: Take 1 tablet by mouth once daily metformin 1,000 mg tablet 1,000 mg PO BID 30 Days Qty: 60 2RF metoprolol succinate 25 mg tablet extended release 24 hr See Rx Instructions .ROUTE .COMPLEX Qty: 15 2RF Dose Instruction: TAKE 1/2 (ONE-HALF) TABLET BY MOUTH ONCE DAILY FOR ELEVATED BLOOD PRESSURE FOR 30 DAYS Rx Instructions: TAKE 1/2 (ONE-HALF) TABLET BY MOUTH ONCE DAILY FOR ELEVATED BLOOD PRESSURE FOR 30 DAYS lansoprazole 30 mg capsule,delayed release(DR/EC) 30 mg PO DAILY Qty: 90 1RF Discharge Orders: Discharge ED (Routine); Ordered 09/15/21 Ordered By: August Mcginnis Referrals: JENNI Barber, [employer] [Primary Care Provider] - Discharge Diet: Usual diet Discharge Activity: Increase activity as tolerated Activity Restrictions/Additional Instructions: Weightbearing as tolerated. If symptoms persist follow-up with your primary care doctor for further evaluation and possible referral to podiatry or orthopedics if needed. Use anti-inflammatories prescribed as needed. Ice and elevate ankle as needed for comfort. Coding Level of Care Code ED Internet Database Specialist for Ryan Bain Exam Detailed
--- NOTE | 2021-09-15 06:35 | XR_ITS ---
WS: [id number] LEFT FOOT: 3 VIEW(S) TECHNIQUE: AP, oblique and lateral. HISTORY: pain COMPARISON: None available. No acute fracture or dislocation. Mild hallux valgus. No erosions. No significant osteoarthritis at the mid foot. There is a moderate s ize calcaneal spur. Mild soft tissue edema surrounding the foot. XR/XR foot LT min 3V* [id number] IMPRESSION: Mild soft tissue edema. No fracture or acute finding.
[2021-09-15 06:42] VITALS: PULSE 68
--- NOTE | 2021-09-15 06:53 | XR_ITS ---
WS: [id number] LEFT ANKLE: 3 VIEW(S) TECHNIQUE: AP, oblique(s) and lateral. HISTORY: pain COMPARISON: None available. Normal anatomic alignment with no fracture or dislocation. No joint effusion or widening of the ankle mortise. Small osteophyte or remote avulsion fracture from the medial malleolus. Moderate size calcaneal spur. Mild soft tissue edema. XR/XR ankle LT min 3V* [id number] IMPRESSION: 1. Mild soft tissue edema at the ankle. 2. Remote injury medial malleolus. 3. No acute fracture.
[2021-09-15 07:32] VITALS: BP 107/75; PULSE 113; RESP 14; O2SAT 97
== END 2021-09-15 07:27 | disposition home or self-care (01) ==
PROVIDERS: Emergency Provider Family Medicine; PCP Nurse Practitioner Family
DX: S93.402A Sprain of unspecified ligament of left ankle, initial encounter (principal); Z79.84 Long term (current) use of oral hypoglycemic drugs; I10 Essential (primary) hypertension; E10.9 Type 1 diabetes mellitus without complications; X50.1XXA Overexertion from prolonged static or awkward postures, initial encounter
CPT/HCPCS: 73610; 73630; 99282

== ENCOUNTER → 2021-12-22 09:24 | Outpatient (BNVA) | payer MEDICAID, SELFPAY | PROVIDERS: PCP Nurse Practitioner Family; Visit Provider Internal Medicine Nephrology | DX: N18.2 Chronic kidney disease, stage 2 (mild) (principal) | CPT/HCPCS: 80069 ==

== ENCOUNTER → 2022-06-27 10:05 | Outpatient (BNVA) | payer MEDICAID, SELFPAY | PROVIDERS: PCP Nurse Practitioner Family; Visit Provider Podiatrist Foot & Ankle Surgery | DX: M76.822 Posterior tibial tendinitis, left leg (principal); M79.672 Pain in left foot; M79.671 Pain in right foot | CPT/HCPCS: 73630; 99204 ==

== ENCOUNTER → 2022-07-31 09:56 | Outpatient (BNVA) | payer OTHER, MEDICAID, SELFPAY | PROVIDERS: PCP Nurse Practitioner Family; Visit Provider Podiatrist Foot & Ankle Surgery | DX: M76.829 Posterior tibial tendinitis, unspecified leg (principal); X58.XXXA Exposure to other specified factors, initial encounter; S99.922A Unspecified injury of left foot, initial encounter | CPT/HCPCS: 73630 ==

== ENCOUNTER → 2022-08-02 14:46 | Outpatient (BNVA) | payer OTHER, MEDICAID, SELFPAY | PROVIDERS: PCP Nurse Practitioner Family; Visit Provider Registered Nurse | DX: E55.9 Vitamin D deficiency, unspecified (principal); N18.9 Chronic kidney disease, unspecified | CPT/HCPCS: 80069; 81000; 82043; 82306; 82542; 85025 ==

== ENCOUNTER 2022-11-16 13:02 | Outpatient (CLI) | payer OTHER, MEDICAID, SELFPAY ==
--- NOTE | 2022-11-16 13:15 | USCV_ITS ---
Roberto Benitez Age: 37 Gender: M : 1985 Exam Date: 11/16/2022 13:23 Ordering Phys: Tonny Bahena M.D ([email or web address]) Technologist: Exam Location: [facility] [place] Indication: chest pain BP: 130 / 85 HR: 90 Rhythm: Sinus Technical Quality: Adequate MEASUREMENTS (Male / Female) Normal Values 2D ECHO LV Diastolic Diameter PLAX 4.1 cm 4.2 - 5.9 / 3.9 - 5.3 cm LV Systolic Diameter PLAX 2.9 cm IVS Diastolic Thickness 1.3 cm 0.6 - 1.0 / 0.6 - 0.9 cm IVS Systolic Thickness 1.5 cm LVPW Diastolic Thickness 1.3 cm 0.6 - 1.0 / 0.6 - 0.9 cm LVPW Systolic Thickness 1.6 cm LVOT Diameter 2.4 cm LV Ejection Fraction 2D Teich 54.5 % LV Ejection Fraction MOD 2C 75.1 % LV Ejection Fraction 2C AL 75.8 % LA Diameter 4.5 cm M-MODE Aortic Annulus Diameter 3.5 cm LA Ao Ratio MM 1.4 MV E Point Septal Separation 0.8 cm DOPPLER AV Peak Velocity 130.0 cm/s LVOT Peak Velocity 103.0 cm/s AV Area Cont Eq vti 3.4 cm squared AV Area Cont Eq pk 3.5 cm squared MV Area PHT 5.0 cm squared Mitral E to A Ratio 0.8 MV E' Velocity 41.5 cm/s Mitral E to MV E' Ratio 8.9 Mitral E to LV E' Lateral Ratio 9.3 Mitral E to LV E' Septal Ratio 8.6 TR Peak Velocity 124.3 cm/s TR Peak Gradient 6.2 mmHg TV Peak E Velocity 88.0 cm/s Right Atrial Pressure 3.0 mmHg Pulmonary Artery Systolic Pressu 9.2 mmHg RV Acceleration Time 0.2 s FINDINGS Left Ventricle Left ventricle is normal in size. LV systolic function is normal with EF of 55 to 60%. No regional wall motion abnormalities are seen. Grade 1 diastolic dysfunction Right Ventricle Normal in size and function Right Atrium Normal in size Left Atrium Normal in size Mitral Valve Structurally normal mitral valve. Trace mitral regurgitation. Aortic Valve Structurally normal aortic valve. No significant stenosis or regurgitation. Tricuspid Valve Mild tricuspid regurgitation. Insufficient TR jet to calculate RVSP Pulmonic Valve Not well visualized Pericardium Normal Aorta Normal in size IVC Appears to be normal CONCLUSIONS LV systolic function is normal with EF of 55 to 60% Grade 1 diastolic dysfunction Trace mitral regurgitation Mild tricuspid regurgitation No comparison studies are available. Tonny Bahena MD (Electronically Signed) Final Date: 01 Dec 2022 10:44 S
[2022-11-16] MEDS: perflutren protein-a microsphr 0.22 mg/mL SDV 3 mL IV (13:20)
== END 2022-11-16 13:03 | disposition home or self-care (01) ==
PROVIDERS: PCP Nurse Practitioner Family; Visit Provider Internal Medicine
DX: R07.9 Chest pain, unspecified (principal); R06.02 Shortness of breath; I50.30 Unspecified diastolic (congestive) heart failure; I07.1 Rheumatic tricuspid insufficiency
CPT/HCPCS: C8929; Q9956

== ENCOUNTER 2023-02-27 07:23 | Outpatient (CLI) | payer OTHER, MEDICAID, SELFPAY ==
[2023-02-27 07:42] VITALS: BMI 60.2
--- NOTE | 2023-02-27 07:49 | NMCV_ITS ---
NM anirudh perf SPECT r/s* [id number] Roberto Benitez Age: 37 Gender: M : 1985 Exam Date: 02/27/2023 08:25 Ordering Phys: Tonny Bahena M.D ([email or web address]) Technologist: DEDE Solares Exam Location: [facility] Indications: CHEST PAIN, SHORTNESS OF BREATH STRESS TEST Please [facility] IMAGE PROTOCOL Rest/Stress 1 Lexiscan Day Radiopharmaceutical Dose (mCi) Administration Site Administered by Rest: Tc-99m 10.7 IV DEDE Pfeiffer Sestamibi Stress:Tc-99m 33.0 IV DEDE Pfeiffer Sestamibi Rest: 27-Feb-2023 60 Discovery 630 Stress: 27-Feb-2023 30 Discovery 630 0.4mg Lexiscan. Images obtained in supine and prone position. SPECT RESULTS Technical Quality: Excellent Raw Data Analysis: Normal Image Corrections: No attenuation or motion correction applied Summed Stress Score: 0 Summed Rest Score: 6 Summed Difference Score: 0 PERFUSION FINDINGS There is reduced radiotracer uptake in the inferior wall on both rest and stress images. This likely represents attenuation artifact. No evidence of ischemia. FUNCTIONAL RESULTS (calculated via Gated SPECT) Stress Image LV EF (%): 42 Stress EDV (mL):132 TID: 0.92 Stress ESV (mL):77 FUNCTIONAL FINDINGS: LV systolic function is mildly reduced with EF of 42% IMPRESSIONS 1. Attenuation artifact noted in RCA territory. No evidence of ischemia. 2. LV systolic function is mildly reduced with EF of 42%. Tonny Bahena MD (Electronically Signed) Final Date: 28 February 2023 18:16 S
--- NOTE | 2023-02-27 07:49 | ECG_ITS ---
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 Interpretive Statements NAME OF STUDY: LEXISCAN SESTAMIBI STRESS TEST INDICATION: [Chest Pain; Shortness of Breath, ] Procedure: At the baseline, the blood pressure was 153/107 mmHg with a heart rate of 83 bpm. The electrocardiogram showed normal sinus rhythm, normal axis with normal ST and T's. The Lexiscan was infused over a period of 20 seconds. A total of 0.4 mg of Lexiscan was infused. The stress phase was continued for a total of 5 minutes. Heart rate was at the end of stress phase was 94 bpm and a blood pressure of 139/92 mmHg. The EKG at the peak infusion revealed normal sinus rhythm with no significant ST-T wave changes. Sestamibi was injected 20 seconds after the Lexiscan infusion. Blood pressure at the end of recovery phase was 129/94 mmHg with a heart rate of 98 bpm. Conclusion: 1. Normal EKG response to Lexiscan infusion 2. No Lexiscan induced chest pain or cardiac arrhythmia. 3. Normal blood pressure and heart rate response. 4. Sestamibi/sestamibi perfusion scan pending; see separate report. Electronically Signed On 03-19-2023 16:23:22 CDT by Tonny Bahena M.D. [email or web address]
[2023-02-27] MEDS: regadenoson 0.4 Mg/5 ml Syringe IVP (09:06)
[2023-02-27 09:18] VITALS: BP 129/94; PULSE 97
== END 2023-02-27 07:24 | disposition home or self-care (01) ==
PROVIDERS: PCP Nurse Practitioner Family; Visit Provider Internal Medicine
DX: R07.9 Chest pain, unspecified (principal); R00.2 Palpitations; R06.02 Shortness of breath
CPT/HCPCS: 36415; 78452; 93017; 96374; A9500; J2785